=== PATIENT | male | born 1965 | race Caucasian/White ===

== ENCOUNTER 2023-07-16 14:00 | Emergency (ER) | payer BC ==
[2023-07-16] MEDS ORDERED: HYDROmorphone 1 MG/ML Syringe IVPUSH ONE (14:43)
[2023-07-16] MEDS ORDERED: Propofol 200 MG/20 ML SDV IVPUSH ONE ×3 (15:27→18:49)
[2023-07-16] MEDS ORDERED: Ketamine 200 MG/20 ML MDV IVPUSH ONE (16:03)
[2023-07-16] MEDS ORDERED: Propofol 200 MG/20 ML SDV ONE (16:05)
== END 2023-07-16 17:35 | disposition home or self-care (01) ==
LOC: JD.ED 14:00
DX: S43.004A Unspecified dislocation of right shoulder joint, initial encounter (principal); E11.9 Type 2 diabetes mellitus without complications
CPT/HCPCS: 23650; 73030; 96374; 99152; 99153; 99283; J1170; J2704; J3490